=== PATIENT | male | born 1965 | race Caucasian/White ===

== ENCOUNTER 2018-11-07 02:07 | Emergency (ER) | payer MEDICAID ==
[2018-11-07] MEDS ORDERED: KETOROLAC 30 MG/ML VIAL IVP ONE (02:47)
--- NOTE | 2018-11-07 03:09 | Emergency Department Record ---
History of Present Illness - General Chief complaint: Flank Pain Stated complaint: URGENCY,FLANK PAIN Time Seen by Provider: 11/07/18 02:30 Source: Patient Mode of Arrival: Ambulatory Limitations: No limitations - History of Present Illness Initial comments: pt c/o l flank pain. he has had symptoms of a uti for 3 days, then today he devloped l flank pain. he went to [facility] and had a neg w/u. he had an us of his kidney which showed a cyst only MD Complaint: Other Onset/Timin -: Hour(s) Location: Left flank Radiation: Suprapubic Severity: Moderate Severity scale (1-10): 8 Quality: Aching, Sharp Consistency: Constant Improves with: None Worsens with: None Reports: Nausea/vomiting - Related Data Sexually active: Yes Home Medications Medication Instructions Recorded Confirmed Last Taken Amitriptyline HCl [Elavil] 25 mg PO QHS 11/07/18 11/07/18 Unknown Hydrocodone/Acetaminophen [[place] 1 tab PO Q6HR 11/07/18 11/07/18 Unknown 7.5-325 Tablet] Quetiapine Fumarate [Seroquel] 50 mg PO QHS 11/07/18 11/07/18 Unknown Previous Rx's Medication Instructions Recorded Hydrocodone/Acetaminophen [Stanfield 1 each PO Q6HR #10 tablet 11/07/18 5-325 Tablet] Allergies Allergy/AdvReac Type Severity Reaction Status Date / Time No Known Drug Allergies Allergy Verified 11/07/18 02:19 Travel Screening - Travel/Exposure Within Last 30 Days Have you traveled within the last 30 days?: No - Travel/Exposure Within Last Year Have you traveled outside the [place] in the last year?: No - Additonal Travel Details Have you been exposed to anyone with a communicable illness?: No - Travel Symptoms Symptom Screening: None Review of Systems Reviewed: No additional complaints except as noted below Constitutional: Reports: As per HPI. Denies: Chills, Fever, Malaise, Night sweats, Weakness, Weight change Eyes: Reports: As per HPI. Denies: Eye discharge, Eye pain, Photophobia, Vision change ENT: Reports: As per HPI. Denies: Congestion, Dental pain, Ear pain, Epistaxis, Hearing loss, Throat pain Respiratory: Reports: As per HPI. Denies: Cough, Dyspnea, Hemoptysis, Stridor, Wheezes Cardiovascular: Reports: As per HPI. Denies: Arrhythmia, Chest pain, Dyspnea on exertion, Edema, Murmurs, Orthopnea, Palpitations, Paroxysmal nocturnal dyspnea, Rheumatic Fever, Syncope Endocrine: Reports: As per HPI. Denies: Fatigue, Heat or cold intolerance, Polydipsia, Polyuria Gastrointestinal: Reports: As per HPI. Denies: Abdominal pain, Constipation, Diarrhea, Hematemesis, Hematochezia, Melena, Nausea, Vomiting Genitourinary: Reports: As per HPI. Denies: Dysuria, Frequency, Hematuria, Incontinence, Retention, Testicular pain, Testicular mass, Urgency Musculoskeletal: Reports: As per HPI. Denies: Arthralgia, Back pain, Gout, Joint swelling, Myalgia, Neck pain Skin: Reports: As per HPI. Denies: Bruising, Change in color, Change in hair/nails, Lesions, Pruritus, Rash Neurological: Reports: As per HPI. Denies: Abnormal gait, Confusion, Headache, Numbness, Paresthesias, Seizure, Tingling, Tremors, Vertigo, Weakness Psychiatric: Reports: As per HPI. Denies: Anxiety, Auditory hallucinations, Depression, Homicidal thoughts, Suicidal thoughts, Visual hallucinations Hematological/Lymphatic: Reports: As per HPI. Denies: Anemia, Blood Clots, Easy bleeding, Easy bruising, Swollen glands Past Medical History - SOCIAL HISTORY Smoking Status: Former smoker Alcohol Use: None Drug Use: None - RESPIRATORY Hx Respiratory Disorders: No - CARDIOVASCULAR Hx Cardio Disorders: No - NEURO Hx Neuro Disorders: No - GI Hx GI Disorders: No - Hx Genitourinary Disorders: Yes Hx Kidney Stones: Yes - ENDOCRINE Hx Endocrine Disorders: No - MUSCULOSKELETAL Hx Musculoskeletal Disorders: Yes Hx Musculoskeletal Disease: Yes - PSYCH Hx Psych Problems: No - HEMATOLOGY/ONCOLOGY Hx Hematology/Oncology Disorders: No Family Medical History Any Significant Family History?: No Physical Exam - General General Appearance: Alert, Oriented x3, Cooperative, Mild distress - Head Head exam: Normal inspection - Eye Eye exam: Normal appearance, PERRL, EOMI Pupils: Normal accommodation - ENT ENT exam: Normal exam, Mucous membranes moist, Normal external ear exam, Normal orophraynx Ear exam: Normal external inspection. negative: External canal tenderness Nasal Exam: Normal inspection. negative: Discharge, Sinus tenderness Mouth exam: Normal external inspection, Tongue normal Teeth exam: Normal inspection. negative: Dental caries Throat exam: Normal inspection. negative: Tonsillar erythema, Tonsillar exudate - Neck Neck exam: Normal inspection, Full ROM. negative: Tenderness - Respiratory Respiratory exam: Normal lung sounds bilaterally. negative: Respiratory distress - Cardiovascular Cardiovascular Exam: Regular rate, Normal rhythm, Normal heart sounds - GI/Abdominal GI/Abdominal exam: Soft, Normal bowel sounds. negative: Tenderness - Rectal Rectal exam: Deferred - exam: Deferred - Extremities Extremities exam: Normal inspection, Full ROM, Normal capillary refill. negative: Tenderness - Back Back exam: Reports: Normal inspection, Full ROM. Denies: Muscle spasm, Rash noted, Tenderness - Neurological Neurological exam: Alert, CN II-XII intact, Normal gait, Oriented X3 - Psychiatric Psychiatric exam: Normal affect, Normal mood - Skin Skin exam: Dry, Intact, Normal color, Warm Course Vital Signs 11/07/18 02:10 Temperature 98.4 F Pulse Rate 85 Respiratory 20 Rate Blood Pressure 169/117 Pulse Ox 94 L - Reevaluation(s) Reevaluation #1: 11/07/18 04:[address] show renal lithiasis Medical Decision Making - Lab Data Result diagrams: 11/07/18 03:40 11/07/18 03:40 Disposition Disposition: Discharge Clinical Impression: Renal lithiasis Hydronephrosis Qualifiers: Hydronephrosis type: with ureteral calculous obstruction Qualified Code(s): N13.2 - Hydronephrosis with renal and ureteral calculous obstruction Disposition: Home, Self-Care Condition: (1) Good Instructions: Kidney Stones (ED), How to Strain Your Urine (ED) Additional Instructions: follow up with urologist. push fluids. continue flomax. return sooner if worse Prescriptions: Hydrocodone/Acetaminophen [Stanfield 5-325 Tablet] 1 each PO Q6HR #10 tablet Referrals: Raghavendra Hagen M.D. [MEDICAL DOCTOR] - [facility] [Provider Group] Forms: Patient Portal Access Quality - Quality Measures Quality Measures: N/A - Blood Pressure Screening Does Patient Have Any of the Following: No Blood Pressure Classification: Hypertensive Reading Systolic Measurement: 169 Diastolic Measurement: 117 Screening for High Blood Pressure: < First Hypertensive BP, F/U Documented > [G8950] First Hypertensive Follow-up Interventions: Follow-up with rescreen GT 1 day and LT 4 weeks.
[2018-11-07] MEDS ORDERED: 0.9 % SODIUM CHLORIDE 1,000 ML BAG IV ONE (03:36)
[2018-11-07 03:49] LABS: ABSOLUTE NEUTROPHIL COUNT 3.59; BASO % 0.8 % (0-6); EOS % 5.8 % (0-6); GRAN % 50.5 % (47-80); HEMATOCRIT 44.5 % (42.0-52.0); HEMOGLOBIN 15.5 gm/dl (14.0-18.0); LYMPH % 30.7 % (16-45); MEAN CELL VOLUME 97.8 fl (81-97); MEAN CORPUSCULAR HEMOGLOBIN 34.1 pg (27-33); MEAN CORPUSCULAR HGB CONC 34.8 g/dl (32-36); MEAN PLATELET VOLUME 11.1 fl (7.4-10.4); MONO % 12.2 % (0-9); PLATELET COUNT 220 K/uL (130-400); RED BLOOD COUNT 4.55 M/uL (4.40-5.70); RED CELL DISTRIBUTION WIDTH 12.4 % (11.5-14.5); WHITE BLOOD COUNT W/O DIFF 7.1 K/uL (4.2-12.2)
[2018-11-07 03:59] LABS: BLOOD UREA NITROGEN 12 mg/dL (6-20)
[2018-11-07 04:00] LABS: CREATININE 0.9 mg/dL (0.7-1.2); EST GLOMERULAR FILTRATION RATE > 60 mL/min
[2018-11-07 04:02] LABS: GLUCOSE,RANDOM 116 mg/dL (74-109)
[2018-11-07 04:09] LABS: URINE APPEARANCE CLEAR; URINE BILIRUBIN NEGATIVE (NEGATIVE); URINE BLOOD MODERATE (NEGATIVE); URINE COLOR YELLOW; URINE GLUCOSE (UA) NEGATIVE (NEGATIVE); URINE KETONE NEGATIVE (NEGATIVE); URINE LEUKOCYTE ESTERASE NEGATIVE (NEGATIVE); URINE NITRITE NEGATIVE (NEGATIVE); URINE PROTEIN NEGATIVE (NEGATIVE); URINE UROBILINOGEN 0.2 E.U./dL (0.20 - 1.00)
[2018-11-07 04:19] LABS: URINE EPITHELIAL CELLS NONE SEEN (FEW); URINE WBC NONE SEEN (0-2/hpf)
[2018-11-07] MEDS ORDERED: ONDANSETRON HCL IV 4 MG/2 ML VIAL IVP ONE (04:23)
[2018-11-07] MEDS ORDERED: HYDROMORPHONE HCL 2 MG/ML VIAL IVP ONE (04:23)
--- NOTE | 2018-11-07 12:52 | CT SCAN REPORT ---
EXAM: CT SCAN OF THE ABDOMEN AND PELVIS WITHOUT CONTRAST HISTORY: LEFT FLANK PAIN WITH NAUSEA AND CHILLS. TECHNIQUE: Standard CT imaging of the abdomen and pelvis was performed without contrast. Comparison: None. FINDINGS: There is mild atelectasis or scarring at both lung bases. The lung bases are otherwise clear. There are a few tiny hypodensities within the liver which are too small to characterize, but suggestive of cysts or hemangiomas. The liver is otherwise normal. The gallbladder, biliary tree, pancreas, spleen, and adrenal glands are normal. There is a 2 mm calculus within the left ureterovesical junction resulting in mild hydronephrosis. A few additional tiny nonobstructing stones are present within the left kidney, the largest of which measures 2 mm. There are small cysts within both kidneys. There is a 2.3 cm cyst at the mid to lower pole of the left kidney laterally. A faint 1.4 cm cyst is present within the posterior cortex. There is a 1.7 cm exophytic cyst at the upper pole of the right kidney. Note is made of a 1.5 cm mildly hyperdense lesion off the lateral cortex of the left kidney. An additional tiny hyperdense lesion is present within the lower pole of the left kidney and a similar appearing hyperdense area is noted along the anterior cortex of the right kidney. These are nonspecific, but likely represent proteinaceous cysts. The aorta is normal in caliber. There is no retroperitoneal lymphadenopathy. The large and small bowel loops are normal. The appendix is visualized and is unremarkable. There is no pneumoperitoneum or ascites. The stomach and epigastrium appear normal. The urinary bladder and prostate are normal. The anterior abdominal wall is unremarkable. There are no acute osseous abnormalities. Advanced degenerative changes are present within the lumbar spine at the L4-L5 level. There appears to partial fusion of the L4-L5 level. Degenerative disk disease and facet arthropathy are also noted at the L3-L4 and L5-S1 levels. No acute osseous abnormalities are identified. IMPRESSION: 1. 2 MM CALCULUS WITHIN THE LEFT URETEROVESICAL JUNCTION RESULTING IN MILD HYDRONEPHROSIS. 2. ADDITIONAL TINY NONOBSTRUCTING STONES WITHIN THE LEFT KIDNEY. 3. SMALL BILATERAL RENAL CYSTS. ADDITIONAL HYPERDENSE LESIONS ARE PRESENT WITHIN BOTH KIDNEYS SUGGESTING PROTEINACEOUS CYSTS. A FOLLOW-UP MRI OF THE KIDNEYS WITH AND WITHOUT CONTRAST IS SUGGESTED FOR CONFIRMATION. 4. TINY HYPODENSITIES WITHIN THE LIVER ARE TOO SMALL TO CHARACTERIZE, BUT SUGGESTIVE OF SMALL CYSTS OR HEMANGIOMAS. 5. ADDITIONAL CHRONIC FINDINGS ABOVE. JOB NUMBER: [id number] [facility]
== END 2018-11-07 05:04 | disposition home or self-care (01) ==
LOC: ER 02:07
DX: N13.2 Hydronephrosis with renal and ureteral calculous obstruction (principal); R11.2 Nausea with vomiting, unspecified; Z87.442 Personal history of urinary calculi; Z87.891 Personal history of nicotine dependence
CPT/HCPCS: 74176; 80048; 81001; 85025; 96374; 96375; 99284; J1885; J2405; J7030